=== PATIENT | male | born 1960 | race Caucasian/White ===

== ENCOUNTER 2017-07-13 10:03 | Day surgery (SDC) | payer MEDICAID ==
[2017-07-12 09:36] LABS: BASOPHILS % (AUTO) 0.6 % (0-1); EOSINOPHILS # (AUTO) 0.1 X10'3 (0-0.9); HEMATOCRIT 44.8 % (42.0-52.0); LYMPHOCYTES # (AUTO) 1.7 X10'3 (1.1-4.8); LYMPHOCYTES % (AUTO) 30.2 % (21-51); MEAN CORPUSCULAR HEMOGLOBIN 30.7 PG (27.0-31.0); MEAN CORPUSCULAR HGB CONC 35.7 % (33.0-36.5); MEAN CORPUSCULAR VOLUME 86.1 FL (78-98); MEAN PLATELET VOLUME 7.6 FL (7.4-10.4); MONOCYTES # (AUTO) 0.5 X10'3 (0-0.9); MONOCYTES % (AUTO) 8.6 % (2-12); NEUTROPHILS # (AUTO) 3.4 X10'3 (1.8-7.7); NEUTROPHILS % (AUTO) 58.6 % (42-75); PLATELET COUNT 240 X10'3 (140-440); RED CELL DISTRIBUTION WIDTH 13.1 % (11.5-14.5); WHITE BLOOD COUNT 5.8 X10'3 (4.5-11.0)
[2017-07-12 09:42] LABS: PROTHROMBIN TIME 10.6 SECONDS (9.0-12.0)
[2017-07-12 09:44] LABS: ALBUMIN 3.6 G/DL (3.4-5.0); ANION GAP 13 (8-16); BLOOD UREA NITROGEN 15 MG/DL (7-18); BUN/CREATININE RATIO 12.3 (5.4-32.0); CALCIUM 8.7 MG/DL (8.5-10.1); CHLORIDE 109 MMOL/L (99-107); CREATININE 1.22 MG/DL (0.60-1.10); GLUCOSE 111 MG/DL (70-104); POTASSIUM 4.4 MMOL/L (3.5-5.1); SODIUM 147 MMOL/L (135-145); TOTAL CARBON DIOXIDE 24.7 MMOL/L (24-32); eGFR 62 ML/MIN
[2017-07-13] VITALS (25 sets, daily range): BP systolic 97–147; BP diastolic 59–103
[~2017-07-13 10:03] MED LIST: AMIO200T57 PO; APIX5TAB3 PO
[2017-07-13] MEDS ORDERED: LORazepam 0.5 MG tablet PO ONE (10:25)
[2017-07-13] MEDS ORDERED: atropine 0.1mg/ml 10ml syringe IV ONE (10:25)
[2017-07-13] MEDS ORDERED: morphine 10mg/ml inj. IV ONE (10:25)
[2017-07-13] MEDS ORDERED: amiodarone in dextrose, iso-osm 150mg/100ml bag IV ONE (10:25)
[2017-07-13] MEDS ORDERED: diphenhydrAMINE 25mg capsule PO ONE ×2 (10:25)
[2017-07-13] MEDS ORDERED: MIDAZolam 5mg/ml 2ml vial IV ONE (10:25)
[2017-07-13] MEDS ORDERED: normal saline 1000ml 1,000 ML IV SCH (10:25)
[2017-07-13] MEDS ORDERED: AMIO200T57 PO (10:31)
[2017-07-13] MEDS ORDERED: CARV-49 PO (10:31)
[2017-07-13] MEDS ORDERED: APIX5TAB3 PO (10:31)
[2017-07-13] MEDS ORDERED: morphine 4 MG/ML inj SYRINge IV ONE (11:05)
== END 2017-07-13 15:12 | disposition home or self-care (01) ==
LOC: SSTAY O 10:03
PROVIDERS: ATTEND Internal Medicine Cardiovascular Disease
DX: I48.0 Paroxysmal atrial fibrillation (principal); I25.10 Atherosclerotic heart disease of native coronary artery without angina pectoris; I34.0 Nonrheumatic mitral (valve) insufficiency; I36.1 Nonrheumatic tricuspid (valve) insufficiency; Z79.899 Other long term (current) drug therapy
CPT/HCPCS: 36415; 80048; 85025; 85610; 92960; 93005; 93312; J2250; J2270; J7030; Q0163; A4620; J0282; J0461

== ENCOUNTER 2018-05-23 09:14 | Emergency (ER) | payer MEDICAID, OTHER ==
[~2018-05-23] VITALS: Ht 180.3 cm; Wt 87.0 kg
[~2018-05-23 09:14] MED LIST changes: +AMIO200T54 PO; -AMIO200T57 PO; +CARV-49 PO
[2018-05-23 10:23] VITALS: BP 128/84
== END 2018-05-23 10:37 | disposition home or self-care (01) ==
LOC: ER 09:14
DX: R00.0 Tachycardia, unspecified (principal); I48.91 Unspecified atrial fibrillation; I25.10 Atherosclerotic heart disease of native coronary artery without angina pectoris; F17.200 Nicotine dependence, unspecified, uncomplicated; Z95.5 Presence of coronary angioplasty implant and graft; Z79.899 Other long term (current) drug therapy
CPT/HCPCS: 93005; 93306; 99284

== ENCOUNTER 2019-04-15 08:34 | Day surgery (SDC) | payer MEDICAID ==
[2019-04-15] VITALS (17 sets, daily range): BP systolic 94–142; BP diastolic 68–102
[~2019-04-15] VITALS: Ht 180.3 cm; Wt 84.6 kg
[2019-04-15] MEDS ORDERED: LORazepam 0.5 MG tablet PO ONE (09:05)
[2019-04-15] MEDS ORDERED: normal saline 1000ml 1,000 ML IV SCH (09:05)
[2019-04-15] MEDS ORDERED: morphine 10mg/ml inj. IV ONE (09:05)
[2019-04-15] MEDS ORDERED: MIDAZolam 5mg/ml 2ml vial IV ONE (09:05)
[2019-04-15] MEDS ORDERED: amiodarone in dextrose, iso-osm 150mg/100ml bag IV ONE (09:05)
[2019-04-15] MEDS ORDERED: diphenhydrAMINE 25mg capsule PO ONE ×3 (09:05→10:45)
[2019-04-15] MEDS ORDERED: atropine 0.1mg/ml 10ml syringe IV ONE (09:05)
[2019-04-15] MEDS ORDERED: CARV6.252 PO (09:22)
[2019-04-15] MEDS ORDERED: LOSA50TA64 PO (09:25)
[2019-04-15] MEDS ORDERED: ASPI-1264 PO (09:25)
[2019-04-15 09:45] LABS: BASOPHILS % (AUTO) 0.7 % (0-1); EOSINOPHILS # (AUTO) 0.1 X10'3 (0-0.9); HEMATOCRIT 45.1 % (42.0-52.0); HEMOGLOBIN 15.9 g/dl (14.0-17.9); LYMPHOCYTES # (AUTO) 1.3 X10'3 (1.1-4.8); LYMPHOCYTES % (AUTO) 21.7 % (21-51); MEAN CORPUSCULAR HEMOGLOBIN 32.9 PG (27.0-31.0); MEAN CORPUSCULAR HGB CONC 35.3 g/dL (33.0-36.5); MEAN CORPUSCULAR VOLUME 93.2 FL (78-98); MEAN PLATELET VOLUME 7.6 FL (7.4-10.4); MONOCYTES # (AUTO) 0.5 X10'3 (0-0.9); MONOCYTES % (AUTO) 8.9 % (2-12); NEUTROPHILS # (AUTO) 4.1 X10'3 (1.8-7.7); NEUTROPHILS % (AUTO) 67.7 % (42-75); PLATELET COUNT 200 X10'3 (140-440); RED BLOOD COUNT 4.84 X10'6 (4.70-6.10); RED CELL DISTRIBUTION WIDTH 13.5 % (11.5-14.5)
[2019-04-15 09:59] LABS: ALBUMIN 3.5 G/DL (3.4-5.0); ANION GAP 11 (8-16); BLOOD UREA NITROGEN 12 MG/DL (7-18); BUN/CREATININE RATIO 10.6 (5.4-32.0); CALCIUM 8.4 MG/DL (8.5-10.1); CHLORIDE 108 MMOL/L (99-107); CREATININE 1.13 MG/DL (0.60-1.10); GLUCOSE 104 MG/DL (70-104); POTASSIUM 3.8 MMOL/L (3.5-5.1); SODIUM 142 MMOL/L (135-145); TOTAL CARBON DIOXIDE 23.4 MMOL/L (24-32); eGFR 67 ML/MIN
== END 2019-04-15 16:15 | disposition home or self-care (01) ==
LOC: SSTAY O 08:34 → EDSTATUS 13:00 → SSTAY O 16:15
PROVIDERS: ATTEND Internal Medicine Cardiovascular Disease
DX: I48.91 Unspecified atrial fibrillation (principal); I42.0 Dilated cardiomyopathy
CPT/HCPCS: 36415; 80048; 85025; 85610; 92960; 93005; 93312; 93325; J0282; J0461; J2250; J2270; J7030; Q0163

== ENCOUNTER 2019-05-15 13:53 | Emergency (ER) | payer MEDICAID ==
[~2019-05-15] VITALS: Ht 180.3 cm; Wt 88.6 kg
[~2019-05-15 13:53] MED LIST changes: -AMIO200T54 PO; +AMIO200T62 PO; -APIX5TAB3 PO; +ASPI-1264 PO; -CARV-49 PO; +CARV6.252 PO; +LOSA50TA64 PO
[2019-05-15] MEDS ORDERED: midazolam 2 mg/2 ml injection ONE (13:57)
[2019-05-15] MEDS ORDERED: fentaNYL/PF 50MCG/1 ML 2ML syringe ONE (13:58)
[2019-05-15 14:39] LABS: BASOPHILS # (AUTO) 0.1 X10'3 (0-0.2); BASOPHILS % (AUTO) 0.7 % (0-1); EOSINOPHILS # (AUTO) 0.1 X10'3 (0-0.9); EOSINOPHILS % (AUTO) 1.4 % (0-6); HEMATOCRIT 45.7 % (42.0-52.0); HEMOGLOBIN 16.3 g/dl (14.0-17.9); LYMPHOCYTES # (AUTO) 2.1 X10'3 (1.1-4.8); LYMPHOCYTES % (AUTO) 24.5 % (21-51); MEAN CORPUSCULAR HEMOGLOBIN 32.4 PG (27.0-31.0); MEAN CORPUSCULAR HGB CONC 35.7 g/dL (33.0-36.5); MEAN CORPUSCULAR VOLUME 90.6 FL (78-98); MEAN PLATELET VOLUME 7.5 FL (7.4-10.4); MONOCYTES # (AUTO) 0.7 X10'3 (0-0.9); MONOCYTES % (AUTO) 8.2 % (2-12); NEUTROPHILS # (AUTO) 5.6 X10'3 (1.8-7.7); NEUTROPHILS % (AUTO) 65.2 % (42-75); PLATELET COUNT 220 X10'3 (140-440); RED BLOOD COUNT 5.05 X10'6 (4.70-6.10); RED CELL DISTRIBUTION WIDTH 13.7 % (11.5-14.5); WHITE BLOOD COUNT 8.7 X10'3 (4.5-11.0)
[2019-05-15 14:56] LABS: ALANINE AMINOTRANSFERASE 30 U/L (12-78); ALBUMIN 3.9 G/DL (3.4-5.0); ALBUMIN/GLOBULIN RATIO 1.2 (1.1-1.5); ALKALINE PHOSPHATASE 60 IU/L (46-116); ANION GAP 8 (8-16); ASPARTATE AMINO TRANSFERASE 17 U/L (10-37); BILIRUBIN,TOTAL 0.6 MG/DL (0.1-1.0); BLOOD UREA NITROGEN 17 MG/DL (7-18); BUN/CREATININE RATIO 14.5 (5.4-32.0); CALCIUM 8.8 MG/DL (8.5-10.1); CHLORIDE 107 MMOL/L (99-107); CREATININE 1.17 MG/DL (0.60-1.10); GLUCOSE 91 MG/DL (70-104); POTASSIUM 4.5 MMOL/L (3.5-5.1); SODIUM 142 MMOL/L (135-145); TOTAL CARBON DIOXIDE 26.9 MMOL/L (24-32); TOTAL PROTEIN 7.1 G/DL (6.4-8.2); eGFR 64 ML/MIN
[2019-05-15] MEDS ORDERED: metoprolol tartrate 1mg/ml inj IV ONE (16:20)
[2019-05-15] MEDS ORDERED: normal saline 1000ML IV soln IVB ONE (16:25)
[2019-05-15 17:13] VITALS: BP 128/64
[2019-05-15] MEDS ORDERED: APIX5TAB3 PO (17:19)
== END 2019-05-15 17:45 | disposition home or self-care (01) ==
LOC: ER 13:53
DX: I48.92 Unspecified atrial flutter (principal); R42 Dizziness and giddiness; I48.91 Unspecified atrial fibrillation; I25.10 Atherosclerotic heart disease of native coronary artery without angina pectoris; Z95.1 Presence of aortocoronary bypass graft; Z79.82 Long term (current) use of aspirin; Z79.899 Other long term (current) drug therapy
CPT/HCPCS: 36415; 71045; 80053; 84484; 85025; 93005; 96361; 96374; 99284; J2250; J3010; J7030; J3490

== ENCOUNTER 2019-05-29 07:36 | Day surgery (SDC) | payer MEDICAID ==
[~2019-05-29] VITALS: Ht 185.4 cm; Wt 86.4 kg
[2019-05-29] VITALS (23 sets, daily range): BP systolic 102–137; BP diastolic 57–101
[~2019-05-29 07:36] MED LIST changes: +APIX5TAB3 PO
[2019-05-29] MEDS ORDERED: morphine 10mg/ml inj. IV ONE (08:00)
[2019-05-29] MEDS ORDERED: diphenhydrAMINE 25mg capsule PO ONE (08:00)
[2019-05-29] MEDS ORDERED: amiodarone in dextrose, iso-osm 150mg/100ml bag IV ONE (08:00)
[2019-05-29] MEDS ORDERED: normal saline 1000ml 1,000 ML IV SCH (08:00)
[2019-05-29] MEDS ORDERED: atropine 0.1mg/ml 10ml syringe IV ONE (08:00)
[2019-05-29] MEDS ORDERED: MIDAZolam 5mg/ml 2ml vial IV ONE (08:00)
[2019-05-29] MEDS ORDERED: LORazepam 0.5 MG tablet PO ONE (08:00)
[2019-05-29] MEDS ORDERED: APIX5TAB3 PO ×2 (08:19→08:22)
[2019-05-29 08:49] LABS: BASOPHILS # (AUTO) 0.1 X10'3 (0-0.2); EOSINOPHILS # (AUTO) 0.1 X10'3 (0-0.9); EOSINOPHILS % (AUTO) 1.1 % (0-6); HEMATOCRIT 47.3 % (42.0-52.0); HEMOGLOBIN 16.7 g/dl (14.0-17.9); LYMPHOCYTES # (AUTO) 1.5 X10'3 (1.1-4.8); LYMPHOCYTES % (AUTO) 26.2 % (21-51); MEAN CORPUSCULAR HGB CONC 35.3 g/dL (33.0-36.5); MEAN CORPUSCULAR VOLUME 90.6 FL (78-98); MEAN PLATELET VOLUME 7.7 FL (7.4-10.4); MONOCYTES # (AUTO) 0.5 X10'3 (0-0.9); MONOCYTES % (AUTO) 8.3 % (2-12); NEUTROPHILS # (AUTO) 3.7 X10'3 (1.8-7.7); NEUTROPHILS % (AUTO) 63.4 % (42-75); PLATELET COUNT 220 X10'3 (140-440); RED BLOOD COUNT 5.23 X10'6 (4.70-6.10); RED CELL DISTRIBUTION WIDTH 13.9 % (11.5-14.5); WHITE BLOOD COUNT 5.8 X10'3 (4.5-11.0)
[2019-05-29 09:15] LABS: ALBUMIN 3.7 G/DL (3.4-5.0); ANION GAP 9 (8-16); BLOOD UREA NITROGEN 12 MG/DL (7-18); BUN/CREATININE RATIO 9.5 (5.4-32.0); CALCIUM 8.5 MG/DL (8.5-10.1); CHLORIDE 109 MMOL/L (99-107); CREATININE 1.26 MG/DL (0.60-1.10); GLUCOSE 104 MG/DL (70-104); POTASSIUM 4.6 MMOL/L (3.5-5.1); SODIUM 143 MMOL/L (135-145); TOTAL CARBON DIOXIDE 25.3 MMOL/L (24-32); eGFR 59 ML/MIN
== END 2019-05-29 12:40 | disposition home or self-care (01) ==
LOC: SSTAY O 07:36
PROVIDERS: ATTEND Internal Medicine Cardiovascular Disease
DX: I48.19 Other persistent atrial fibrillation (principal); I25.10 Atherosclerotic heart disease of native coronary artery without angina pectoris; G47.30 Sleep apnea, unspecified; I42.9 Cardiomyopathy, unspecified
CPT/HCPCS: 36415; 80048; 85025; 85610; 92960; 93005; 93312; J0282; J0461; J2250; J2270; J7030; Q0163

== ENCOUNTER 2019-07-22 12:01 | Emergency (ER) | payer MEDICAID ==
[~2019-07-22] VITALS: Ht 180.3 cm; Wt 90.0 kg
[~2019-07-22 12:01] MED LIST changes: -ASPI-1264 PO
[2019-07-22] MEDS ORDERED: normal saline 1000ML IV soln IVB ONE (12:35)
[2019-07-22] MEDS ORDERED: ondansetron/PF 4mg/2ml inj IV ONE (12:35)
[2019-07-22 12:43] LABS: CLARITY,URINE CLEAR (Clear); COLOR,URINE STRAW (Yellow); GLUCOSE, URINE NEGATIVE (Neg); KETONES,URINE NEGATIVE (Neg); LEUKOCYTE ESTERASE ,URINE NEGATIVE (Neg); NITRITES, URINE NEGATIVE (Neg); OCCULT BLOOD,URINE TRACE-INTACT (Neg); PROTEIN,URINE NEGATIVE (Neg); UROBILINOGEN,URINE 0.2 E.U/dL (0.2-1.0)
[2019-07-22 12:45] LABS: UA COLLECTION TYPE CLN CATCH MIDSTREAM
[2019-07-22 12:49] LABS: BASOPHILS # (AUTO) 0.1 X10'3 (0-0.2); BASOPHILS % (AUTO) 0.8 % (0-1); EOSINOPHILS # (AUTO) 0.1 X10'3 (0-0.9); HEMATOCRIT 45.6 % (42.0-52.0); HEMOGLOBIN 16.2 g/dl (14.0-17.9); LYMPHOCYTES # (AUTO) 1.6 X10'3 (1.1-4.8); LYMPHOCYTES % (AUTO) 24.7 % (21-51); MEAN CORPUSCULAR HEMOGLOBIN 32.1 PG (27.0-31.0); MEAN CORPUSCULAR HGB CONC 35.5 g/dL (33.0-36.5); MEAN CORPUSCULAR VOLUME 90.4 FL (78-98); MEAN PLATELET VOLUME 7.5 FL (7.4-10.4); MONOCYTES # (AUTO) 0.6 X10'3 (0-0.9); MONOCYTES % (AUTO) 8.6 % (2-12); NEUTROPHILS # (AUTO) 4.2 X10'3 (1.8-7.7); NEUTROPHILS % (AUTO) 63.9 % (42-75); PLATELET COUNT 241 X10'3 (140-440); RED BLOOD COUNT 5.04 X10'6 (4.70-6.10); RED CELL DISTRIBUTION WIDTH 13.5 % (11.5-14.5); WHITE BLOOD COUNT 6.6 X10'3 (4.5-11.0)
[2019-07-22 12:49] LABS: BACTERIA,URINE NONE SEEN /HPF (Neg); MUCUS STRANDS NONE SEEN /LPF (Neg); SQUAMOUS EPITHELIAL CELL,UR FEW /LPF (FEW); TRANSITIONAL EPI CELLS,URINE FEW /HPF; WBC,URINE 0-4 /HPF (0-4)
[2019-07-22 13:04] LABS: ALANINE AMINOTRANSFERASE 20 U/L (12-78); ALBUMIN 3.7 G/DL (3.4-5.0); ALBUMIN/GLOBULIN RATIO 1.1 (1.1-1.5); ALKALINE PHOSPHATASE 53 IU/L (46-116); ANION GAP 4 (8-16); ASPARTATE AMINO TRANSFERASE 11 U/L (10-37); BILIRUBIN,TOTAL 0.5 MG/DL (0.1-1.0); BLOOD UREA NITROGEN 15 MG/DL (7-18); BUN/CREATININE RATIO 13.2 (5.4-32.0); CALCIUM 8.6 MG/DL (8.5-10.1); CHLORIDE 106 MMOL/L (99-107); CREATININE 1.14 MG/DL (0.60-1.10); GLUCOSE 88 MG/DL (70-104); POTASSIUM 4.6 MMOL/L (3.5-5.1); SODIUM 140 MMOL/L (135-145); TOTAL CARBON DIOXIDE 29.9 MMOL/L (24-32); eGFR 66 ML/MIN
[2019-07-22 14:23] VITALS: BP 117/82
== END 2019-07-22 14:31 | disposition home or self-care (01) ==
LOC: ER 12:01
DX: E86.0 Dehydration (principal); I48.91 Unspecified atrial fibrillation; I25.10 Atherosclerotic heart disease of native coronary artery without angina pectoris; Z95.1 Presence of aortocoronary bypass graft; Z98.890 Other specified postprocedural states; Z79.01 Long term (current) use of anticoagulants; Z79.899 Other long term (current) drug therapy
CPT/HCPCS: 36415; 71045; 80053; 81001; 84484; 85025; 93005; 96361; 96374; 99285; J2405; J7030

== ENCOUNTER 2019-09-05 06:18 | Day surgery (SDC) | payer MEDICAID ==
[~2019-09-05] VITALS: Ht 185.4 cm; Wt 88.8 kg
[2019-09-05] VITALS (10 sets, daily range): BP systolic 98–115; BP diastolic 65–76
[2019-09-05] MEDS ORDERED: normal saline 1000ml 1,000 ML IV SCH (06:45)
[2019-09-05] MEDS ORDERED: morphine 10mg/ml inj. IV ONE (06:45)
[2019-09-05] MEDS ORDERED: amiodarone in dextrose, iso-osm 150mg/100ml bag IV ONE (06:45)
[2019-09-05] MEDS ORDERED: atropine 0.1mg/ml 10ml syringe IV ONE (06:45)
[2019-09-05] MEDS ORDERED: LORazepam 0.5 MG tablet PO ONE (06:45)
[2019-09-05] MEDS ORDERED: diphenhydrAMINE 25mg capsule PO ONE (06:45)
[2019-09-05] MEDS ORDERED: MIDAZolam 1mg/ml 10ml vial IV ONE (06:45)
[2019-09-05 06:56] LABS: BASOPHILS # (AUTO) 0.1 X10'3 (0-0.2); BASOPHILS % (AUTO) 0.9 % (0-1); EOSINOPHILS # (AUTO) 0.1 X10'3 (0-0.9); EOSINOPHILS % (AUTO) 2.1 % (0-6); HEMATOCRIT 45.7 % (42.0-52.0); HEMOGLOBIN 15.9 g/dl (14.0-17.9); LYMPHOCYTES # (AUTO) 1.8 X10'3 (1.1-4.8); LYMPHOCYTES % (AUTO) 26.8 % (21-51); MEAN CORPUSCULAR HEMOGLOBIN 32.2 PG (27.0-31.0); MEAN CORPUSCULAR HGB CONC 34.8 g/dL (33.0-36.5); MEAN CORPUSCULAR VOLUME 92.6 FL (78-98); MEAN PLATELET VOLUME 7.6 FL (7.4-10.4); MONOCYTES # (AUTO) 0.6 X10'3 (0-0.9); MONOCYTES % (AUTO) 9.5 % (2-12); NEUTROPHILS % (AUTO) 60.7 % (42-75); PLATELET COUNT 232 X10'3 (140-440); RED BLOOD COUNT 4.93 X10'6 (4.70-6.10); RED CELL DISTRIBUTION WIDTH 13.8 % (11.5-14.5); WHITE BLOOD COUNT 6.6 X10'3 (4.5-11.0)
[2019-09-05 07:05] LABS: ALBUMIN 3.9 G/DL (3.4-5.0); ANION GAP 6 (8-16); BLOOD UREA NITROGEN 19 MG/DL (7-18); BUN/CREATININE RATIO 14.5 (5.4-32.0); CALCIUM 8.9 MG/DL (8.5-10.1); CHLORIDE 109 MMOL/L (99-107); CREATININE 1.31 MG/DL (0.60-1.10); GLUCOSE 108 MG/DL (70-104); POTASSIUM 4.5 MMOL/L (3.5-5.1); SODIUM 142 MMOL/L (135-145); TOTAL CARBON DIOXIDE 26.6 MMOL/L (24-32); eGFR 56 ML/MIN
[2019-09-05 07:09] LABS: PARTIAL THROMBOPLASTIN TIME 26 SECONDS (22-32)
[2019-09-05] MEDS ORDERED: CARV-50 PO (07:21)
== END 2019-09-05 12:05 | disposition home or self-care (01) ==
LOC: SSTAY O 06:18 → MED 3N 06:32 → SSTAY O 12:05
PROVIDERS: ATTEND Internal Medicine Cardiovascular Disease
DX: I48.0 Paroxysmal atrial fibrillation (principal); I25.10 Atherosclerotic heart disease of native coronary artery without angina pectoris; I42.0 Dilated cardiomyopathy; G47.30 Sleep apnea, unspecified; Z79.899 Other long term (current) drug therapy; Z98.890 Other specified postprocedural states; F17.290 Nicotine dependence, other tobacco product, uncomplicated
CPT/HCPCS: 36415; 80048; 85025; 85610; 85730; 92960; 93005; 94760; J2250; J2270; J7030; Q0163

== ENCOUNTER 2019-09-11 12:39 | Outpatient (CLI) | payer MEDICAID ==
[~2019-09-11 12:39] MED LIST changes: +CARV-50 PO; -CARV6.252 PO; -LOSA50TA64 PO
== END 2019-09-11 23:59 | disposition home or self-care (01) ==
LOC: RT 12:39
PROVIDERS: ATTEND Internal Medicine Cardiovascular Disease
DX: R06.02 Shortness of breath (principal); Z79.899 Other long term (current) drug therapy
CPT/HCPCS: 94010; 94727; 94729